=== PATIENT | female | born 1960 | race Caucasian/White ===

== ENCOUNTER → 2017-10-15 | Outpatient (CLI) | payer MEDICAID | LOC: FIMAGING 18:08 | PROVIDERS: ATTEND Physician Assistant | DX: R05 Cough (principal); R06.89 Other abnormalities of breathing; R06.02 Shortness of breath ==

== ENCOUNTER 2017-11-24 06:18 | Day surgery (SDC) | payer MEDICAID ==
[2017-11-24] MEDS ORDERED: DIAZEPAM 5 MG TAB PO ONE (06:23)
[2017-11-24] MEDS ORDERED: ASPIRIN EC 325 MG TAB PO ONE (06:23)
[2017-11-24] MEDS ORDERED: FAMOTIDINE 20 MG TAB PO ONE (06:23)
[2017-11-24] MEDS ORDERED: diphenhydrAMINE 25 MG CAP PO ONE (06:23)
[2017-11-24] MEDS ORDERED: NS 1,000 ML IV ONE (06:23)
--- NOTE | 2017-11-24 06:41 | CPEKG ---
Heart Rate: 47 RR Interval: 1277 P-R Interval: 144 QRSD Interval: 136 QT Interval: 516 QTC Interval: 457 P [place]: 85 QRS [place]: 4 T Wave [place]: 42 EKG Severity - ABNORMAL ECG - EKG Impression: SINUS BRADYCARDIA EKG Impression: LEFT BUNDLE BRANCH BLOCK EKG Impression: SECONDARY ST T ABNORMALITY EKG Impression: SLURRED [place]ORKE IN I, aVL, V5 AND V6, II, III AND AVF UNUSUAL WITH LEFT BUNDLE EKG Impression: CLINICAL CORRELATION ADVISED Electronically Signed By: Aleksandar Obrien 26-Nov-2017 11:09:24
--- NOTE | 2017-11-24 06:58 | PDHPUP ---
History & Physical Update H&P update statement: This history and physical update is based on an assessment of the patient which was completed after admission or registration (within 24 hours), but prior to the surgery/procedure. H&P update: H&P reviewed & patient examined, no change in patient's condition since H&P completed
--- NOTE | 2017-11-24 06:59 | PDPROPOC ---
Sedation Plan of Care Sedation Plan of Care: mental status noted, patient educated of risks, benefits , alternatives, patient can tolerate sedation ASA Classification: ASA 2 Planned drugs: fentanyl, midazolam Mallampati Score: Class 2 Mallampati Reference Image: Patient passed 3-3-2 rule?: Yes
[2017-11-24 07:02] LABS: PLATELET COUNT 164 10^3/uL (150-400)
[2017-11-24 07:12] LABS: INR 0.99 (0.83-1.16); PROTIME(PATIENT) 13.3 SEC (12.0-15.0)
[2017-11-24] MEDS ORDERED: LIDOCAINE 1% 300 MG/30 ML SDV ONE (07:19)
[2017-11-24] MEDS ORDERED: IOPAMIDOL (ISOVUE-370) 150 ML BTL IV ONE (07:19)
[2017-11-24] MEDS ORDERED: fentaNYL 100 MCG/2 ML INJ ONE (07:20)
[2017-11-24] MEDS ORDERED: MIDAZOLAM 2 MG/2 ML VIAL ONE (07:20)
[2017-11-24] MEDS ORDERED: ATROPINE SULFATE 1 MG/10 ML SYR IVP PRN (08:22)
[2017-11-24] MEDS ORDERED: ONDANSETRON 4 MG/2 ML VIAL IVP PRN (08:22)
[2017-11-24] MEDS ORDERED: NITROGLYCERIN 0.4 MG BTL SL PRN (08:22)
[2017-11-24] MEDS ORDERED: OXYCODONE/APAP 5/325 TAB PO PRN (08:22)
[2017-11-24] MEDS ORDERED: HYDROCODONE/APAP 5/325 TAB PO PRN (08:22)
--- NOTE | 2017-11-24 08:47 | CPIP ---
[f rep st] INVASIVE CARDIAC PROCEDURE DATE OF PROCEDURE: 11/24/2017 INDICATION: Positive stress test. Syncope. PROCEDURE PERFORMED: 1. Nonselective right groin sheathogram. 2. Bilateral selective coronary angiography. 3. Left heart catheterization. 4. Left ventriculogram. 5. Aortic root angiography. HISTORY: Briefly, this is a 57-year-old female, history with worsening symptoms of shortness of milton th, dizziness, lightheadedness, chest pain who had a positive stress test as an outpatient. Given dakota findings, patient consented for left heart catheterization. DESCRIPTION OF PROCEDURE: After informed consent, the patient brought to [facility] ere the right groin was prepped and draped in sterile fashion. Using lidocaine, a short 6-Slovak she ath placed in the right common femoral artery, verified angiographically. Through the 6-Slov[place] sheat h, the JL4 catheter was advanced in the left coronary artery. Images of the left coronary artery rev ealed what appeared to be initially a long left main with no discernible large circumflex system. Th ere was a tiny branch coming off the proximal LAD, distal left main, which may have been a small circ umflex system. The LAD was a long vessel which wrapped around the apex, which was healthy and free o f disease. There was a medium to large diagonal system, which was healthy and free of disease. Afte r these images were obtained, the JL4 catheter was removed. The JR4 catheter was advanced to the rig ht coronary artery. Images of the right coronary artery revealed normal ostial RCA. The proximal RC A had 20% to 30% plaque disease. Distally, the RPD and RPLS appeared to be healthy and free of disea se. Of note, the RPLS appeared to feed off long branches extending retrograde across into the circ t erritorial area. After these images were obtained, the JR4 catheter was removed. A pigtail catheter advanced to the aortic root to make sure there was no other anomalous takeoff in the circumflex syst em. A power injection was obtained. This showed once again the patency of the right coronary artery and the LAD and once again, the branches coming off the right coronary artery feeding across the galileo cardium into the circumflex territory. After these images were obtained, the pigtail catheter was th en gently advanced into the LV. Left ventricular end diastolic pressure was 13 mmHg. Left ventricul ogram in the [place] showed an EF of 50% with no wall motion abnormalities. No pullback gradient between the LV and the aorta. Pigtail catheter removed over the 0.035 guidewire. Right groin was closed wi th manual pressure. Patient tolerated procedure well without complications. IMPRESSION: 1. Widely patent left anterior descending diagonal artery with possible small takeoff of left circum flex system. 2. 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 3. Normal size aorta. 4. Low normal ejection fraction. PLAN: The patient does not appear to have an anomalous left circumflex as the power injection did no t show any flow into any other accessory branch or vessel. Suspect her circumflex territory is being carried by her distal right coronary artery branches as well as possible small branch coming off the left main/proximal left anterior descending. The patient of note was in a sinus rhythm with a left bundle branch block which was new for the patient. This could potentially explain why she had her ar tifacts present on her stress test. We will follow up with the patient closely in the outpatient set ting and proceed accordingly. /[id number]/MODL
== END 2017-11-24 13:20 | disposition home or self-care (01) ==
LOC: FCATH 06:18
PROVIDERS: ATTEND Internal Medicine Cardiovascular Disease
PROC: B2151ZZ Fluoroscopy of Left Heart using Low Osmolar Contrast (ICD-10-PCS; principal; 2017-11-24)
PROC: B2111ZZ Fluoroscopy of Multiple Coronary Arteries using Low Osmolar Contrast (ICD-10-PCS; principal; 2017-11-24)
PROC: 4A023N7 Measurement of Cardiac Sampling and Pressure, Left Heart, Percutaneous Approach (ICD-10-PCS; principal; 2017-11-24)
DX: R06.02 Shortness of breath (principal); R42 Dizziness and giddiness; R07.9 Chest pain, unspecified
CPT/HCPCS: J1644; J2250; J3010; Q9967

== ENCOUNTER 2017-12-12 02:20 | Emergency (ER) | payer MEDICAID ==
--- NOTE | 2017-12-12 02:28 | EDPHY ---
H & P Stated Complaint: R upper leg "hot iron cast" feeling Time Seen by Provider: 12/12/17 02:26 HPI/ROS: HPI CHIEF COMPLAINT: Right Leg Burning, Recent Cardiac Cath. HISTORY OF PRESENT ILLNESS: Patient is a 57-year-old female she is otherwise healthy no significant medical history however she recently had a cardiac catheterization due to bradycardia. She recently moved here from [place] and at her doctor's office a few weeks ago they noticed that her heart was in 30s. She was referred to Cardiology she had a cardiac catheterization there is rather unremarkable with no significant stenosis or lesions that needed to be ballooned or stented. She did subsequently have a right groin hematoma that is improved. However today she went for vigorous exercise with significant fast pace walking and around noon today developed some right-sided or right inner groin upper pain she describes as sharp stabbing and shocking in nature she believed to be nerve pain. It is worse when she fully extends her leg out lays flat. She noticed it after taking a brisk walk. The pain is located in the right upper groin area at the cardiac catheter is site or close to it. No distal leg pain. No leg weakness. Past Medical History: Denies significant medical history Past Surgical History: Recent cardiac catheterization (11/24/17) Social History: Occasional alcohol use, denies illicit drugs or tobacco. Family History: Noncontributory ROS REVIEW OF SYSTEMS: A comprehensive 10 point review of systems is otherwise negative aside from elements mentioned in the history of present illness. Exam Constitutional appears well nontoxic no acute distress triage nursing summary reviewed, vital signs reviewed, awake/alert. Eyes normal conjunctivae and sclera, EOMI, PERRLA. HENT normal inspection, atraumatic, moist mucus membranes, no epistaxis, neck supple/ no meningismus, no raccoon eyes. Respiratory clear to auscultation bilaterally, normal breath sounds, no respiratory distress, no wheezing. Cardiovascular rate normal, regular rhythm, no murmur, no edema, distal pulses normal. Gastrointestinal soft, non-tender, no rebound, no guarding, normal bowel sounds, no distension, no pulsatile mass. Genitourinary no CVA tenderness. Musculoskeletal right inner groin: Good femoral pulse, cardiac catheter site appears clean, dry intact, no expanding hematoma visualize, compartments are soft, distally her leg is warm, good distal pulse, good cap refill, mild tender palpation over the cardiac catheterization site. Describes it as sharp stabbing shocking pain. no midline vertebral tenderness, full range of motion, no calf swelling, no tenderness of extremities, no meningismus, good pulses, neurovascularly intact. Skin pink, warm, & dry, no rash, skin atraumatic. Neurologic awake, alert and oriented x 3, AAOx3, moves all 4 extremities equally, motor intact, sensory intact, CN II-XII intact, normal cerebellar, normal vision, normal speech. Psychiatric normal mood/affect. Heme/Lymph/Immune no lymphadenopathy. Differential Diagnosis: Includes but is not limited to in a particular order nerve injury, pseudoaneurysm hematoma Medical Decision Making: Plan for this patient check basic blood work, IV establishment with pain control 100 mcg IV fentanyl for pain control, distally 15 mg IV Toradol, ultrasound the right upper lower extremity rule out pseudoaneurysm. Or significant hematoma however clinically on exam most likely has a nerve injury. Re-evaluation: Ultrasound reviewed. Shows no evidence of pseudoaneurysm or AV fistula. No evidence of hematoma. Unremarkable ultrasound. 0305: Patient re-evaluated still has some pain. She received Toradol in 100 mcg of fentanyl. I have ordered her 1 mg Dilaudid to see if I can improve her pain. 0439; re-examination at this time this patient is resting comfortably she is pain-free after Dilaudid. She feels well would like to go home. Limited supply of [place] and ibuprofen for her. Recommend icing her groin, recommend return precautions additionally recommend no vigorous activity for the next 2 weeks specially involves her groin. She is comfortable this plan. Additionally return precautions discussed. Ultrasound has been reviewed is unremarkable for pseudoaneurysm aneurysm fistula or large hematoma. Source: Patient - Personal History Current Tetanus Diphtheria and Acellular Pertussis (TDAP): No - Medical/Surgical History Hx Asthma: No Hx Chronic Respiratory Disease: No Hx Diabetes: No Hx Cardiac Disease: No Hx Renal Disease: No Hx Cirrhosis: No Hx Alcoholism: Yes Hx HIV/AIDS: No Hx Splenectomy or Spleen Trauma: No Other PMH: pmh- etoh, cardiac cath October 2017 - Social History Smoking Status: Current some day smoker Constitutional: Initial Vital Signs Heart Rate 59 L 12/12/17 02:20 Respiratory Rate 18 12/12/17 02:20 Blood Pressure 118/84 H 12/12/17 02:20 O2 Sat (%) 98 12/12/17 02:20 O2 Delivery Mode Room Air Allergies/Adverse Reactions: No Known Allergies Allergy (Verified 12/12/17 02:20) Home Medications: Medication Instructions Recorded Albuterol [Proventil Inhaler HFA 1 - 2 puffs IH DAILY PRN 11/21/17 (*)] Baclofen [Baclofen 10 mg (*)] 10 mg PO HS PRN 11/21/17 Gabapentin [Neurontin 300 MG (*)] 900 - 1,500 mg PO HS PRN 11/21/17 Ibuprofen [Motrin (*)] 200 mg PO DAILY PRN 11/21/17 Multivitamins [Multivitamin (*)] 1 each PO DAILY 11/21/17 [place]-3 Fatty Acids [Fish Oil 1000 1,000 mg PO DAILY 11/21/17 mg (*)] Sertraline HCl [Zoloft 50mg (*)] 75 mg PO HS 11/21/17 Tetrahydrozoline 0.05% [Visine (*)] 1 drop EACHEYE DAILY PRN 11/21/17 Hydrocodone/APAP 5/325 [[place] 1 - 2 tab PO Q4H PRN #14 tab 12/12/17 5/325] Ibuprofen [Motrin (*)] 800 mg PO Q6-8PRN #10 tab 12/12/17 Medical Decision Making - Data Points Laboratory Results: Laboratory Results 12/12/17 02:50 12/12/17 02:50 12/12/17 12/12/17 02:50 02:50 WBC 5.97 10^3/uL 10^3/uL (3.80-9.50) RBC 4.30 10^6/uL 10^6/uL (4.18-5.33) Hgb 14.1 g/dL g/dL (12.6-16.3) Hct 40.7 % % (38.0-47.0) MCV 94.7 fL fL (81.5-99.8) MCH 32.8 pg pg (27.9-34.1) MCHC 34.6 g/dL g/dL (32.4-36.7) RDW 12.0 % % (11.5-15.2) Plt Count 184 10^3/uL 10^3/uL (150-400) MPV 9.9 fL fL (8.7-11.7) Neut % (Auto) 40.5 % % (39.3-74.2) Lymph % (Auto) 44.7 % % (15.0-45.0) [place] % (Auto) 9.0 % % (4.5-13.0) Eos % (Auto) 4.9 % % (0.6-7.6) Baso % (Auto) 0.7 % % (0.3-1.7) Nucleat RBC Rel Count 0.0 % % (0.0-0.2) Absolute Neuts (auto) 2.42 10^3/uL 10^3/uL (1.70-6.50) Absolute Lymphs (auto) 2.67 10^3/uL 10^3/uL (1.00-3.00) Absolute Monos (auto) 0.54 10^3/uL 10^3/uL (0.30-0.80) Absolute Eos (auto) 0.29 10^3/uL 10^3/uL (0.03-0.40) Absolute Basos (auto) 0.04 10^3/uL 10^3/uL (0.02-0.10) Absolute Nucleated RBC 0.00 10^3/uL 10^3/uL (0-0.01) Immature Gran % 0.2 % % (0.0-1.1) Immature Gran # 0.01 10^3/uL 10^3/uL (0.00-0.10) Sodium 143 mEq/L mEq/L (135-145) Potassium 4.4 mEq/L mEq/L (3.5-5.2) Chloride 107 mEq/L mEq/L (97-110) Carbon Dioxide 24 mEq/l mEq/l (22-31) Anion Gap 12 mEq/L mEq/L (8-16) BUN 25 mg/dL H mg/dL (7-23) Creatinine 0.7 mg/dL mg/dL (0.6-1.0) Estimated GFR > 60 Glucose 107 mg/dL H mg/dL (70-100) Calcium 9.7 mg/dL mg/dL (8.5-10.4) Medications Given: Discontinued Medications Fentanyl (Sublimaze) 100 mcg IVP EDNOW ONE Stop: 12/12/17 02:34 Last Admin: 12/12/17 02:43 Dose: 100 mcg Hydromorphone HCl (Dilaudid) 1 mg IVP EDNOW ONE Stop: 12/12/17 03:06 Last Admin: 12/12/17 03:10 Dose: 1 mg Sodium Chloride (Ns) 1,000 mls @ 0 mls/hr IV ONCE ONE PRN Reason: Wide Open Stop: 12/12/17 02:35 Last Admin: 12/12/17 02:42 Dose: 1,000 mls Ketorolac Tromethamine (Toradol) 15 mg IVP EDNOW ONE Stop: 12/12/17 02:34 Last Admin: 12/12/17 02:43 Dose: 15 mg Departure - Departure Disposition: Home, Routine, Self-Care Clinical Impression: Nerve pain Condition: Good Instructions: Paresthesia (ED) Additional Instructions: 1. No significant vigorous activity of her leg for the next 2 weeks. 2. Follow up with your cpas 3. Ice her groin. 4. Anti-inflammatory pain medicine for mild pain 5. [place] for severe pain 6. Return emergency room if you have worsening symptoms questions or concerns. 7. No heavy lifting over 30 lb for the next 2 weeks. Referrals: Deedee Haley PA [Primary Care Provider] - As per Instructions Vish Randall MD [Medical Doctor] - As per Instructions Stand Alone Forms: Work Excuse Prescriptions: Hydrocodone/APAP 5/325 [[place] 5/325] 1 - 2 tab PO Q4H PRN #14 tab PRN Reason: Pain, Moderate Ibuprofen [Motrin (*)] 800 mg PO Q6-8PRN #10 tab
[2017-12-12] MEDS ORDERED: KETOROLAC 15 MG/1 ML SDV IVP ONE (02:33)
[2017-12-12] MEDS ORDERED: fentaNYL 100 MCG/2 ML INJ IVP ONE (02:33)
[2017-12-12] MEDS ORDERED: NS 1,000 ML IV ONE (02:34)
[2017-12-12 02:53] LABS: PLATELET COUNT 184 10^3/uL (150-400)
[2017-12-12] MEDS ORDERED: HYDROmorphONE/DILAUDID 2 MG/ML INJ IVP ONE (03:05)
[2017-12-12 05:03] VITALS: BP 113/76
== END 2017-12-12 05:03 | disposition home or self-care (01) ==
DX: G89.18 Other acute postprocedural pain (principal); F17.200 Nicotine dependence, unspecified, uncomplicated; M79.2 Neuralgia and neuritis, unspecified
CPT/HCPCS: 96374; J1170; J1885; J3010

== ENCOUNTER → 2018-07-02 | Outpatient (CLI) | payer MEDICAID | LOC: FIMAGING 09:32 | PROVIDERS: ATTEND Physician Assistant | DX: N60.02 Solitary cyst of left breast (principal) ==

== ENCOUNTER 2018-07-08 22:49 | Emergency (ER) | payer MEDICAID ==
[2018-07-08] MEDS ORDERED: KETOROLAC 15 MG/1 ML SDV IVP ONE (23:11)
[2018-07-08] MEDS ORDERED: ASPIRIN 81 MG CHEWABLE TAB PO ONE (23:11)
--- NOTE | 2018-07-08 23:16 | EDPHY ---
H & P Stated Complaint: mid chest pressure that radiates into neck and dizzy Time Seen by Provider: 07/08/18 22:57 HPI/ROS: Chief Complaint: Chest discomfort HPI: 57-year-old woman is presenting with chest tightness which has been present to the entire day but became worse 4 hr ago. Describes as tightness in her central chest. It comes in waves from an intensity of 3-7. Currently is 5. There are no aggravating or alleviating factors. She has had some flu-like symptoms for the last couple of weeks. She is status post left foot surgery about 10 weeks ago. No leg pain or swelling. No pain with inspiration. She has been having some mild dizziness intermittently for the last couple of weeks as well. No fevers or chills. No nausea or vomiting. She did have a cardiac catheterization in large which revealed a 30% stenosis of the proximal right coronary artery otherwise was unremarkable. She has a known left bundle branch block which was noted at the time of the catheterization. She had that because she was having some episodes of chest tightness and had an abnormal stress test. She is currently taking medications. ROS: 10 systems were reviewed and were negative except those elements noted in the HPI. PMH: 30% stenosis in the proximal RCA, known left bundle branch block Social History: Occasional smoking, no alcohol, no recreational drug use Family History: non-contributory Physical Exam: Gen: Awake, Alert, No Distress HEENT: Nose: no rhinorrhea Eyes: PERRLA, EOMI Mouth: Moist mucosa Neck: Supple, no JVD Chest: nontender, lungs clear to auscultation Heart: S1, S2 normal, no murmur Abd: Soft, non-tender, no guarding Back: no CVA tenderness, no midline tenderness Ext: no edema, non-tender Skin: no rash Neuro: CN II-XII intact, Sensation grossly intact, Strength 5/5 in bilateral upper and lower extremities - Personal History Current Tetanus/Diphtheria Vaccine: Yes Current Tetanus Diphtheria and Acellular Pertussis (TDAP): Yes - Medical/Surgical History Hx Asthma: No Hx Chronic Respiratory Disease: No Hx Diabetes: No Hx Cardiac Disease: Yes Hx Renal Disease: No Hx Cirrhosis: No Hx Alcoholism: No Hx HIV/AIDS: No Hx Splenectomy or Spleen Trauma: No Other PMH: pmh- etoh, cardiac cath October 2017 40% blockage. left foot and ankle surgery. oral surgery - Social History Smoking Status: Current some day smoker Constitutional: Initial Vital Signs Temperature (C) 36.4 C 07/08/18 22:51 Heart Rate 47 L 07/08/18 22:51 Respiratory Rate 18 07/08/18 22:51 Blood Pressure 123/79 H 07/08/18 22:51 O2 Sat (%) 95 07/08/18 22:51 O2 Delivery Mode Room Air Allergies/Adverse Reactions: No Known Allergies Allergy (Verified 07/08/18 22:54) Home Medications: Medication Instructions Recorded Baclofen [Baclofen 10 mg (*)] 10 mg PO HS PRN 11/21/17 Gabapentin [Neurontin 300 MG (*)] 900 - 1,500 mg PO HS PRN 11/21/17 Sertraline HCl [Zoloft 50mg (*)] 75 mg PO HS 11/21/17 Medical Decision Making - Diagnostics EKG Interpretation: ECG time 11:02 p.m. Sinus rhythm with a rate of 68, there is a left bundle branch block. There are premature atrial complexes. No acute ST or T-wave changes. ECG is unchanged compared to 1 from the 24 November 2017. Imaging Results: Imaging Impressions Chest X-Ray 07/08/18 23:10 Impression: No acute pulmonary disease. ED Course/Re-evaluation: 57-year-old woman presenting with chest tightness. She has left bundle branch block which is unchanged under ECG. She had a catheterization last October which showed 30% blockage in the proximal RCA, otherwise negative. Her troponin here is negative. Was concerning she is having episodes where she is dropping her heart rate down to the 30s. It is staying there for 20 sec or so and then is bumping back up again. She continues to have PACs. Given her. The bradycardia I have discussed with the hospitalist, Dr. Gupta. He will admit to his service to the PCU for further monitoring. - Data Points Laboratory Results: Laboratory Results 07/08/18 23:19 07/08/18 23:19 07/08/18 07/08/18 07/08/18 23:23 23:19 23:19 WBC 5.45 10^3/uL 10^3/uL (3.80-9.50) RBC 3.98 10^6/uL L 10^6/uL (4.18-5.33) Hgb 13.2 g/dL g/dL (12.6-16.3) Hct 37.6 % L % (38.0-47.0) MCV 94.5 fL fL (81.5-99.8) MCH 33.2 pg pg (27.9-34.1) MCHC 35.1 g/dL g/dL (32.4-36.7) RDW 11.6 % % (11.5-15.2) Plt Count 160 10^3/uL 10^3/uL (150-400) MPV 9.7 fL fL (8.7-11.7) Neut % (Auto) 40.3 % % (39.3-74.2) Lymph % (Auto) 45.9 % H % (15.0-45.0) [place] % (Auto) 9.9 % % (4.5-13.0) Eos % (Auto) 2.8 % % (0.6-7.6) Baso % (Auto) 0.9 % % (0.3-1.7) Nucleat RBC Rel Count 0.0 % % (0.0-0.2) Absolute Neuts (auto) 2.20 10^3/uL 10^3/uL (1.70-6.50) Absolute Lymphs (auto) 2.50 10^3/uL 10^3/uL (1.00-3.00) Absolute Monos (auto) 0.54 10^3/uL 10^3/uL (0.30-0.80) Absolute Eos (auto) 0.15 10^3/uL 10^3/uL (0.03-0.40) Absolute Basos (auto) 0.05 10^3/uL 10^3/uL (0.02-0.10) Absolute Nucleated RBC 0.00 10^3/uL 10^3/uL (0-0.01) Immature Gran % 0.2 % % (0.0-1.1) Immature Gran # 0.01 10^3/uL 10^3/uL (0.00-0.10) D-Dimer 0.34 ug/mLFEU ug/mLFEU (0.00-0.50) Sodium Potassium Chloride Carbon Dioxide Anion Gap BUN Creatinine Estimated GFR Glucose Calcium POC Troponin I 0.00 ng/mL ng/mL (0.00-0.08) 07/08/18 23:19 WBC RBC Hgb Hct MCV MCH MCHC RDW Plt Count MPV Neut % (Auto) Lymph % (Auto) [place] % (Auto) Eos % (Auto) Baso % (Auto) Nucleat RBC Rel Count Absolute Neuts (auto) Absolute Lymphs (auto) Absolute Monos (auto) Absolute Eos (auto) Absolute Basos (auto) Absolute Nucleated RBC Immature Gran % Immature Gran # D-Dimer Sodium 139 mEq/L mEq/L (135-145) Potassium 3.8 mEq/L mEq/L (3.3-5.0) Chloride 107 mEq/L mEq/L (97-110) Carbon Dioxide 23 mEq/l mEq/l (22-31) Anion Gap 9 mEq/L mEq/L (6-14) BUN 20 mg/dL mg/dL (7-23) Creatinine 0.7 mg/dL mg/dL (0.6-1.0) Estimated GFR > 60 Glucose 123 mg/dL H mg/dL (70-100) Calcium 9.2 mg/dL mg/dL (8.5-10.4) POC Troponin I Medications Given: Discontinued Medications Aspirin (Aspirin) 324 mg PO EDNOW ONE Stop: 07/08/18 23:12 Last Admin: 07/08/18 23:18 Dose: 324 mg Ketorolac Tromethamine (Toradol) 15 mg IVP EDNOW ONE Stop: 07/08/18 23:12 Last Admin: 07/08/18 23:18 Dose: 15 mg Point of Care Test Results: Chemistry 07/08/18 23:23 POC Troponin I 0.00 ng/mL ng/mL (0.00-0.08) Departure - Departure [facility]: [facility] Clinical Impression: Chest pain, Bradycardia Condition: Fair Referrals: Anastasia Putnam MD [Primary Care Provider] - As per Instructions
[2018-07-08 23:31] LABS: PLATELET COUNT 160 10^3/uL (150-400)
[2018-07-09] MEDS ORDERED: ONDANSETRON 4 MG/2 ML VIAL IVP PRN (00:18)
[2018-07-09] MEDS ORDERED: ONDANSETRON DISINTEGRATING 4 MG TAB PO PRN (00:18)
[2018-07-09] MEDS ORDERED: ACETAMINOPHEN 325 MG TAB PO PRN (00:18)
--- NOTE | 2018-07-09 00:51 | PDGENHP ---
History and Physical - Chief Complaint Chest pressure - History of Present Illness 57 yo F w/ minimal PMHx presents with palpitations and chest pressure. The patient has been recovering from a L foot surgery. She returned to a more strenuous job today and had some severe bouts of foot pain. After this she experienced some chest pressure. This was mild to moderate in nature. This has now resolved. In the ED her troponin was negative and her ECG shows a stable LBBB. I reviewed her work-up earlier this year for dizziness. She visited Dr. Randall who obtained an echo(essentially normal), stress test (abnormality noted), and followed by catheterization, which showed only 30% blockage in RCA. He felt her stress test abnormality was likely related to LBBB. In additional, she wore a 30 day monitor that noted occasional sinus bradycardia, but mostly normal sinus rhythm with occasional PACs. During our conversation the patient tells me she prefers to go home today and instead visit with Dr. Randall in the office about her symptoms. I discussed that the safest option would be a period of inpatient observation including cardiology consultation, but she preferred to be discharged home due to an important work event in the morning. She understands that she should return to the ED if her symptoms are to return. History Information - Allergies/Home Medication List Allergies/Adverse Reactions: No Known Allergies Allergy (Verified 07/08/18 22:54) Home Medications: Baclofen [Baclofen 10 mg (*)] 10 mg PO HS PRN 11/21/17 [Last Taken 11/23/17] Gabapentin [Neurontin 300 MG (*)] 900 - 1,500 mg PO HS PRN 11/21/17 [Last Taken 11/24/17] Sertraline HCl [Zoloft 50mg (*)] 75 mg PO HS 11/21/17 [Last Taken 11/24/17] I have personally reviewed and updated: family history, medical history - Past Medical History arthritis - Surgical History Additional surgical history: L foot surgery - Family History Positive for: cancer - Social History Smoking Status: Current some day smoker Review of Systems Review of Systems: ROS: 10pt was reviewed & negative except for what was stated in HPI & below Physical Exam Physical Exam: Temp Pulse Resp BP Pulse Ox 36.4 C 59 L 18 122/63 H 96 07/08/18 22:51 07/09/18 00:37 07/09/18 00:37 07/09/18 00:37 07/09/18 00:37 Constitutional: no apparent distress, not in pain Eyes: PERRL, EOMI Ears, Nose, Mouth, Throat: moist mucous membranes, no oral mucosal ulcers Cardiovascular: regular rate and rhythym, no murmur, rub, or gallop Respiratory: no respiratory distress, clear to auscultation Gastrointestinal: normoactive bowel sounds, soft, non-tender abdomen Skin: warm, normal color Musculoskeletal: full muscle strength, no muscle tenderness Neurologic: AAOx3, CN II-XII Intact Lab Data & Imaging Review 07/08/18 23:19 07/08/18 23:19 WBC 5.45 10^3/uL (3.80-9.50) 07/08/18 23: RBC 3.98 10^6/uL (4.18-5.33) L 07/08/18 23:19 Hgb 13.2 g/dL (12.6-16.3) 07/08/18 23:19 Hct 37.6 % (38.0-47.0) L 07/08/18 23:19 MCV 94.5 fL (81.5-99.8) 07/08/18 23: MCH 33.2 pg (27.9-34.1) 07/08/18 23: MCHC 35.1 g/dL (32.4-36.7) 07/08/18 23:19 RDW 11.6 % (11.5-15.2) 07/08/18 23:19 Plt Count 160 10^3/uL (150-400) 07/08/18 23:19 MPV 9.7 fL (8.7-11.7) 07/08/18 23:19 Neut % (Auto) 40.3 % (39.3-74.2) 07/08/18 23: Lymph % (Auto) 45.9 % (15.0-45.0) H 07/08/18 23: [place] % (Auto) 9.9 % (4.5-13.0) 07/08/18 23: Eos % (Auto) 2.8 % (0.6-7.6) 07/08/18 23: Baso % (Auto) 0.9 % (0.3-1.7) 07/08/18 23:19 Nucleat RBC Rel Count 0.0 % (0.0-0.2) 07/08/18 23:19 Absolute Neuts (auto) 2.20 10^3/uL (1.70-6.50) 07/08/18 23:19 Absolute Lymphs (auto) 2.50 10^3/uL (1.00-3.00) 07/08/18 23:19 Absolute Monos (auto) 0.54 10^3/uL (0.30-0.80) 07/08/18 23:19 Absolute Eos (auto) 0.15 10^3/uL (0.03-0.40) 07/08/18 23:19 Absolute Basos (auto) 0.05 10^3/uL (0.02-0.10) 07/08/18 23:19 Absolute Nucleated RBC 0.00 10^3/uL (0-0.01) 07/08/18 23:19 Immature Gran % 0.2 % (0.0-1.1) 07/08/18 23:19 Immature Gran # 0.01 10^3/uL (0.00-0.10) 07/08/18 23:19 D-Dimer 0.34 ug/mLFEU (0.00-0.50) 07/08/18 23:19 Sodium 139 mEq/L (135-145) 07/08/18 23:19 Potassium 3.8 mEq/L (3.3-5.0) 07/08/18 23:19 Chloride 107 mEq/L (97-110) 07/08/18 23:19 Carbon Dioxide 23 mEq/l (22-31) 07/08/18 23:19 Anion Gap 9 mEq/L (6-14) 07/08/18 23:19 BUN 20 mg/dL (7-23) 07/08/18 23:19 Creatinine 0.7 mg/dL (0.6-1.0) 07/08/18 23:19 Estimated GFR > 60 07/08/18 23:19 Glucose 123 mg/dL (70-100) H 07/08/18 23:19 Calcium 9.2 mg/dL (8.5-10.4) 07/08/18 23:19 POC Troponin I 0.00 ng/mL (0.00-0.08) 07/08/18 23:23 Visualized and Interpreted EKG results: Yes EKG Interpretation: Positive for: left bundle branch block Assessment & Plan Assessment: 57 yo F w/ miminal PMHx presents with chest pressure. Plan: 1. Chest pain - Troponin negative and ECG with stable LBBB. Se is currently chest pain free. The patient prefers to be evaluated as an outpatient due to important work event in the morning. HEART score is 3 so this seems reasonable. In addition, she had extensive work-up earlier this year with Dr. Randall (Echo , stress, catheterization, implanted monitor) that was quite reassuring. This included a heart cath 11/24/17 that revealed only 30% proximal RCA disease. - Return precautions given, patient understands to return to ED if symptoms return - She will follow up with Dr. Randall in the next few days 2. Sinus bradycardia - This was intermittently noted while here. She had a 30 day monitor placed earlier this year that revealed the same thing. These episodes only had a 5% correlation with her symptoms. - Follow up with cardiology as outpatient
[2018-07-09 01:00] VITALS: BP 110/67
--- NOTE | 2018-07-09 01:00 | PDDCSUM ---
Discharge Summary Discharge Summary: Patient discharged from ED after evaluation, please see H&P from same date for details.
--- NOTE | 2018-07-09 04:40 | CPEKG ---
Test Reason : OPEN Blood Pressure : / mmHG Vent. Rate : 068 BPM Atrial Rate : 072 BPM P-R Int : 126 ms QRS Dur : 136 ms QT Int : 453 ms P-R-T Axes : 068 035 -10 degrees QTc Int : 482 ms Sinus rhythm Atrial premature complexes Left bundle branch block Confirmed by Bright Faria ([id number]) on 07/09/2018 4:40:04 AM Referred By: Confirmed By:Bright Faria
[2018-07-09] MEDS ORDERED: ENOXAPARIN 40 MG/0.4 ML SYR SC SCH (09:00)
== END 2018-07-09 01:07 | disposition home or self-care (01) ==
LOC: UNDOADMOB 07-09 00:14
DX: R07.9 Chest pain, unspecified (principal); R00.1 Bradycardia, unspecified; I44.7 Left bundle-branch block, unspecified; F17.200 Nicotine dependence, unspecified, uncomplicated
CPT/HCPCS: 84484-PO; 96374; J1650; J1885

== ENCOUNTER 2018-09-04 12:09 | Emergency (ER) | payer MEDICAID ==
--- NOTE | 2018-09-04 12:55 | EDPHY ---
H & P Stated Complaint: stood up and impacted head 8 days ago/incresing vance Time Seen by Provider: 09/04/18 12:54 HPI/ROS: CHIEF COMPLAINT: Hit head, headache HISTORY OF PRESENT ILLNESS: 57-year-old female no anticoagulant use arrives via private vehicle after being seen at by her primary care provider for continued headache after she sustained a mechanical head injury 8 days ago. 8 days ago she was gardening, stood up quickly, impacted vertex of her head against a railing with no loss of consciousness. She has been experiencing continued headache and nausea ever since. No vomiting. No midline C-spine pain. No peripheral paresthesia, weakness, numbness. PRIMARY CARE PROVIDER: REVIEW OF SYSTEMS: 10 systems reviewed and negative with the exception of the elements mentioned in the history of present illness PAST MEDICAL/SURGICAL HISTORY: no anticoagulant use SOCIAL HISTORY: Nonsmoker PHYSICAL EXAM 1) GENERAL: Well-developed, well-nourished, alert and oriented. Answering questions appropriately. GCS 15 2) HEAD: Normocephalic, atraumatic 3) HEENT: Pupils equal, round, reactive to light bilaterally. Negative Horners. Nasopharynx, oropharynx, clear. No deformity or angulation of nose. No septal hematoma. No rhinorrhea. No oral trauma. Ears bilaterally with normal tympanic membranes. No hemotympanum. No fluid or blood in the external auditory canal. No raccoon eyes. No Banegas sign. Teeth are normally aligned with no gross malocclusion, TMJ bilaterally nontender, facial bones nontender including the zygomatic arch, maxilla mandible. 4) NECK: No cervical collar is on. Posterior cervical spine is nontender, no stepoff, no effusion. Full range of motion which does not elicit any midline cervical spine pain, no posterior midline tenderness, no step-off. 5) LUNGS: Clear to auscultation bilaterally, no wheezes, no rhonchi, no retractions. No obvious signs of trauma. No chest wall pain. No flaring, no grunting. Moving symmetrically. No crepitus. 6) HEART: [Regular rate and rhythm, 7) ABDOMEN: No guarding, no rebound, no focal tenderness, no peritoneal signs, no signs of trauma, no ecchymosis 8) MUSCULOSKELETAL: Moving all extremities, no focal areas of tenderness, no obvious trauma. 9) BACK: No midline vertebral tenderness, no fluctuance, no step-off, no obvious trauma, no visual or palpable abnormality. 10) SKIN: No laceration. No abrasion 11)n NEURO: Awake, alert, and oriented to person, place and time. Answers questions appropriately. There were no obvious focal neurologic abnormalities. No cerebellar dysfunction. Cranial nerves 2 through to 12 intact. Normal steady gait. Upper and lower extremities bilaterally with strength 5 / 5, reflexes 2+. DIFFERENTIAL DIAGNOSIS: Not necessarily in any particular order, my differential diagnosis includes, but is not limited to, concussion, skull fracture, intraparenchymal contusion, subarachnoid, subdural and epidural hematoma. The patient understands that this diagnosis is provisional and can never be 100% accurate. - Personal History Current Tetanus Diphtheria and Acellular Pertussis (TDAP): Unsure - Medical/Surgical History Hx Asthma: No Hx Chronic Respiratory Disease: No Hx Diabetes: No Hx Cardiac Disease: Yes Hx Renal Disease: No Hx Cirrhosis: No Hx Alcoholism: No Hx HIV/AIDS: No Hx Splenectomy or Spleen Trauma: No Other PMH: pmh- etoh, cardiac cath October 2017 40% blockage. left foot and ankle surgery. oral surgery - Social History Smoking Status: Current some day smoker Constitutional: Initial Vital Signs Temperature (C) 36.8 C 09/04/18 12:13 Heart Rate 61 09/04/18 12:13 Respiratory Rate 18 09/04/18 12:13 Blood Pressure 126/81 H 09/04/18 12:13 O2 Sat (%) 97 09/04/18 12:13 O2 Delivery Mode Room Air Allergies/Adverse Reactions: No Known Allergies Allergy (Verified 09/04/18 12:12) Home Medications: Medication Instructions Recorded Baclofen [Baclofen 10 mg (*)] 10 mg PO HS PRN 11/21/17 Gabapentin [Neurontin 300 MG (*)] 900 - 1,500 mg PO HS PRN 11/21/17 Sertraline HCl [Zoloft 50mg (*)] 75 mg PO HS 11/21/17 Lipitor 09/04/18 Ondansetron Odt [Zofran Odt] 4 mg PO Q4PRN PRN #10 tab 09/04/18 Medical Decision Making - Diagnostics Imaging Results: Imaging Impressions Head CT 09/04/18 12:54 Impression: No acute intracranial findings. Daria Modi was notified of these findings by telephone at 1:20 PM on 09/04/2018 Images reviewed myself ED Course/Re-evaluation: Care of patient under supervision of secondary supervising physician Dr Dawson with whom I discussed case. 1:29 p.m.: CT head interpreted by staff radiologist negative for posttraumatic sequelae. Images reviewed myself. 1:40 p.m.: Re-evaluation: Resting comfortably, asymptomatic, nonfocal exam. Think the patient can be discharged with my usual and customary head injury precautions instructions including, but not limited to, 2nd impact syndrome. She is answering questions appropriately tolerating p.o. intake. She feels comfortable being discharged. All questions and concerns addressed by myself. Departure - Departure Disposition: Home, Routine, Self-Care Clinical Impression: Head injury due to trauma Qualifiers: Encounter type: initial encounter Qualified Code(s): S09.90XA - Unspecified injury of head, initial encounter Condition: Good Instructions: Head Injury (ED) Additional Instructions: ALTHOUGH THERE IS NO EVIDENCE OF SERIOUS HEAD INJURY AT THIS TIME, DELAYED SIGNS CAN APPEAR 24 TO 48 HOURS AFTER INJURY. PLEASE RETURN TO THE EMERGENCY DEPARTMENT (ED) IMMEDIATELY IF YOU HAVE INCREASED HEADACHE, PERSISTENT HEADACHE , VOMITING, WEAKNESS, CONFUSION OR VISUAL PROBLEMS. WE RECOMMEND THAT YOU DO NOT RESUME CONTACT SPORTS OR ACTIVITIES THAT TAKE COORDINATION OR BALANCE SUCH SKIING OR RIDING A BICYCLE UNTIL CLEARED TO DO SO BY YOUR DOCTOR OR BY A NEUROLOGIST. Referrals: Apple Chaney NP [Primary Care Provider] - 1-2 days without fail Prescriptions: Ondansetron Odt [Zofran Odt] 4 mg PO Q4PRN PRN #10 tab PRN Reason: Nausea
[2018-09-04 14:11] VITALS: BP 133/76
== END 2018-09-04 14:11 | disposition home or self-care (01) ==
DX: S09.90XA Unspecified injury of head, initial encounter (principal); W22.09XA Striking against other stationary object, initial encounter; Y92.9 Unspecified place or not applicable; Y93.H2 Activity, gardening and landscaping; Y99.9 Unspecified external cause status

== ENCOUNTER → 2018-10-06 | Outpatient (CLI) | payer MEDICAID | LOC: FIMAGING 16:35 | PROVIDERS: ATTEND Nurse Practitioner Family | DX: E04.2 Nontoxic multinodular goiter (principal) ==